=== PATIENT | male | born 1960 | race Caucasian/White ===

== ENCOUNTER → 2016-03-25 | Outpatient (CLI) | payer BC ==
[2016-03-25 11:32] LABS: BASO % 0.3 % (0.0-1.0); EOS # 0.1 K/mm3 (0.0-0.50); EOS % 1.6 % (0.0-3.0); LARGE UNSTAINED CELL # 0.2 K/mm3 (0.0-0.4); LARGE UNSTAINED CELL % 2.8 % (0.0-4.0); LYMPH # 3.1 K/mm3 (1.5-4.5); LYMPH % 35.3 % (24.0-44.0); MEAN CORPUSCULAR HEMOGLOBIN 31.6 pg (27.0-33.0); MEAN CORPUSCULAR VOLUME 95.9 fl (80.0-96.0); MONO # 0.5 K/mm3 (0.0-0.8); MONO % 6.1 % (0.0-5.0); NEUTROPHILS # 4.7 K/mm3 (1.8-7.7); NEUTROPHILS % 53.9 % (36.0-66.0); PLATELET COUNT, AUTOMATED 282 k/mm3 (150-450); RED CELL DISTRIBUTION WIDTH 12.1 % (11.5-14.5); WHITE BLOOD COUNT 8.6 K/mm3 (4.0-10.0)
[2016-03-25 12:01] LABS: ALBUMIN 4.2 GM/DL (3.2-5.2); ALBUMIN/GLOBULIN RATIO 1.35 (1.00-1.93); ALKALINE PHOSPHATASE 50 U/L (45-117); ALT/SGPT 31 U/L (12-78); ANION GAP 9 MEQ/L (8-16); AST/SGOT 22 U/L (15-37); BILIRUBIN,TOTAL 0.6 MG/DL (0.2-1.0); BLOOD UREA NITROGEN 13 MG/DL (7-18); CARBON DIOXIDE LEVEL 30 MEQ/L (21-32); CHLORIDE LEVEL 102 MEQ/L (98-107); CHOLESTEROL LEVEL 171 MG/DL (<200); CREATININE FOR GFR 1.07 MG/DL (0.70-1.30); FREE T4 1.16 NG/DL (0.76-1.46); GLOMERULAR FILTRATION RATE > 60.0 (>56); GLUCOSE, FASTING 63 MG/DL (70-105); POTASSIUM SERUM 3.9 MEQ/L (3.5-5.1); SODIUM LEVEL 141 MEQ/L (136-145); TOTAL PROTEIN 7.3 GM/DL (6.4-8.2); TRIGLYCERIDES LEVEL 83 MG/DL (<150)
== END | disposition home or self-care (01) ==
LOC: M WUC 09:17
PROVIDERS: ATTEND Family Medicine
DX: I10 Essential (primary) hypertension (principal); E78.2 Mixed hyperlipidemia

== ENCOUNTER → 2016-04-01 | Outpatient (CLI) | payer BC ==
--- NOTE | 2016-04-01 15:29 | REP ---
Thyroid sonography: History: Hypothyroidism. Elevated TSH. Findings: Thyroid isthmus measures 0.4 cm in thickness. Right lobe dimensions by ultrasound are 5.4 x 2.4 x 1.6 cm. The left thyroid lobe measures 5.3 x 1.8 x 1.8 cm. There are several tiny thyroid cysts. On the right, there is a cyst measuring 2.4 mm. On the left, there are 3.2 and 2.8 mm cystic areas. No solid nodule is seen. Impression: No significant morphologic abnormality. Tiny thyroid cysts. Signed by Tj Fajardo MD 04/01/2016 03:33 P
== END | disposition home or self-care (01) ==
LOC: M RAD 14:33
PROVIDERS: ATTEND Family Medicine
DX: E03.8 Other specified hypothyroidism (principal); E04.1 Nontoxic single thyroid nodule

== ENCOUNTER → 2016-05-09 | Outpatient (CLI) | payer BC ==
[2016-05-09 13:19] LABS: THYROID PEROXIDASE ANTIBODY < 28.0 U/ML (<60.0)
[2016-05-09 13:29] LABS: FREE T4 1.02 NG/DL (0.76-1.46)
== END ==
LOC: M WUC 10:15
PROVIDERS: ATTEND Family Medicine
DX: E03.8 Other specified hypothyroidism (principal)

== ENCOUNTER 2016-10-15 13:49 | Emergency (ER) | payer BC ==
[~2016-10-15] VITALS: Ht 172.7 cm; Wt 78.2 kg
[2016-10-15] MEDS ORDERED: FLOM5CAP PO (14:03)
[2016-10-15] MEDS ORDERED: AMLO10TA PO (14:03)
[2016-10-15] MEDS ORDERED: SUDA30TA PO (14:03)
[2016-10-15] MEDS ORDERED: BETI1SOL OD (14:03)
[2016-10-15] MEDS ORDERED: LOTE0.5S OD (14:03)
[2016-10-15] MEDS ORDERED: SYNT25TA PO (14:06)
[2016-10-15] MEDS ORDERED: ADACEL/BOOSTRIX VACCINE (DIPHTH/PERTUSS/ACELL/TETANUS)0.5ML SYR (90715) IM ONE (14:15)
[2016-10-15] MEDS ORDERED: IBUPROFEN 600 MG TAB PO ONE (14:15)
[2016-10-15] MEDS ORDERED: NORCOTAB PO (14:54)
[2016-10-15] MEDS ORDERED: KEFL500C17 PO (14:54)
[2016-10-15 15:01] VITALS: BP 148/84
--- NOTE | 2016-10-15 15:07 | REP ---
REASON: Trauma. COMPARISON: None. 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 Signed by Konstantin Alamo DO 10/15/2016 04:43 P
== END 2016-10-15 15:12 | disposition home or self-care (01) ==
LOC: M ED 13:49
DX: S62.664B Nondisplaced fracture of distal phalanx of right ring finger, initial encounter for open fracture (principal); W23.0XXA Caught, crushed, jammed, or pinched between moving objects, initial encounter; Y92.62 Dock or shipyard as the place of occurrence of the external cause; Y93.89 Activity, other specified; Y99.8 Other external cause status; E07.9 Disorder of thyroid, unspecified; I10 Essential (primary) hypertension; Z79.899 Other long term (current) drug therapy

== ENCOUNTER → 2018-06-21 | Outpatient (REF) | payer BC ==
[~2018-06-21] MED LIST: AMLO10TA PO; BETI1SOL OD; FLOM0.4C39 PO; HYDR-3715 PO; KEFL500C17 PO; LOTE0.5S OD; SUDA30TA PO; SYNT25TA PO
== END ==
LOC: M LAB REF 16:26
DX: N39.0 Urinary tract infection, site not specified (principal)

== ENCOUNTER → 2018-09-10 | Outpatient (REF) | payer BC | LOC: M LAB REF 16:02 | PROVIDERS: ATTEND Urology | DX: N39.0 Urinary tract infection, site not specified (principal) ==

== ENCOUNTER → 2019-04-08 | Outpatient (CLI) | payer BC, SELFPAY ==
--- NOTE | 2019-04-09 03:18 | REP ---
Clinical: Left scrotal palpable mass. Technique: Real time christie scale and color Doppler evaluation using linear high frequency transducer. Findings: The bilateral testicles are essentially normal in contour, size, echogenicity, and vascularity without testicular mass lesion, infectious/inflammatory process, or torsion. The right epididymis for demonstrates septated cystic changes measuring up to 1.8 x 1.0 x 1.2 cm while the left epididymis demonstrates larger septated cystic changes measuring up to 3.2 x 2.2 x 2.8 cm. No hydrocele. No varicocele. Right testicle measures 4.6 x 2.1 x 2.8 cm. Left testicle measures 4.5 x 2.1 x 3.1 cm. Impression: Bilateral epididymal cysts (left greater than right) Electronically Signed by Jairo Reddy MD 04/09/2019 03:09 A
== END ==
LOC: M RAD 07:34
PROVIDERS: ATTEND Urology
DX: N50.89 Other specified disorders of the male genital organs (principal)

== ENCOUNTER → 2019-08-16 | Outpatient (CLI) | payer BC | LOC: M LABSMTC 13:57 | PROVIDERS: ATTEND Family Medicine | DX: Z11.59 Encounter for screening for other viral diseases (principal) | CPT/HCPCS: C9803; U0003 ==

== ENCOUNTER → 2024-03-28 | Outpatient (CLI) | payer BC ==
[~2024-03-28] MED LIST changes: -BETI1SOL OD; +TIMO5DRO5 OD
== END ==
LOC: M WUC 11:43
PROVIDERS: ATTEND Urology
DX: C61 Malignant neoplasm of prostate (principal)